=== PATIENT | male | born 1970 | race Caucasian/White ===

== ENCOUNTER 2017-05-29 10:48 | Emergency (ER) | payer SELFPAY ==
[~2017-05-29] VITALS: Ht 177.8 cm; Wt 72.6 kg
[~2017-05-29 10:48] MED LIST: ALPR0.25 PO; CYCL-289 PO; ESCI10TA PO; LAMO1TAB PO; PHEN100C4 PO; ZOLP12.542 PO; [UNRECOGNIZED DRUG - REMARK]
[2017-05-29] MEDS ORDERED: FELB600T PO (11:11)
[2017-05-29] MEDS ORDERED: PHEN100C4 PO (11:11)
--- NOTE | 2017-05-29 11:15 | NUR ---
[id number] FROM HOME: S/P WITNESSED SEIZURE. Hx OF SEIZURES. BS IN FIELD 108. STILL POST ICTAL UPON ARRIVAL. PLACED ON CONT CARDIAC AND POX MONITORING. ALL NEEDS ARE ATTENDED, PENDING ER MD EVALUATION.
--- NOTE | 2017-05-29 11:19 | NUR ---
Nay CAMPBELL at bedside for evaluation.
[2017-05-29 12:01] VITALS: BP 155/83
--- NOTE | 2017-05-29 12:01 | NUR ---
Patient discharged to home in stable condition. Written and verbal after care instructions given. Patient verbalizes understanding of instruction. Assisted patient to the waiting room, pt's friends waiting for him in the waiting room.
== END 2017-05-29 12:02 | disposition home or self-care (01) ==
LOC: ER 10:50
DX: G40.909 Epilepsy, unspecified, not intractable, without status epilepticus (principal); F17.200 Nicotine dependence, unspecified, uncomplicated; Z88.1 Allergy status to other antibiotic agents
CPT/HCPCS: 99283; A4606; Z7610